=== PATIENT | female | born 1985 ===

== ENCOUNTER 2016-10-16 17:38 | Emergency (ER) | payer OTHER ==
[2016-10-16 17:38] VITALS: BMI 33.8
[2016-10-16 17:45] VITALS: BP 107/71; PULSE 94; TEMP 98.1; O2SAT 98
--- NOTE | 2016-10-16 20:52 | C.PDOC ---
History Of Present Illness Pt left without being seen. Time Seen by Provider: 10/16/16 20:28 Chief Complaint (Nursing): Abdominal Pain Past Medical History Vital Signs: Last Vital Signs Temp 98.1 F 10/16/16 17:42 Pulse 94 H 10/16/16 17:42 Resp 16 10/16/16 19:40 BP 107/71 10/16/16 17:42 Pulse Ox 98 10/20/16 00:21 - Medical History PMH: Anemia, Hyperthyroidism Surgical History: ( x 1) - [facility] Procedures TETANUS TOXOID ADMINIST (05/28/13) Family History: States: Unknown Family Hx - Social History Hx Tobacco Use: No Hx Alcohol Use: No Hx Substance Use: No - Immunization History Hx Tetanus Toxoid Vaccination: No Hx Influenza Vaccination: No Hx Pneumococcal Vaccination: Yes ED Course And Treatment O2 Sat by Pulse Oximetry: 98 Disposition - Disposition Disposition: LEFT W/O BEING SEEN - ER ONLY Disposition Time: 20:00 Condition: GOOD - Clinical Impression Clinical Impression: Abdominal pain
[2016-10-16 22:52] VITALS: RESP 16
== END 2016-10-16 20:28 | disposition left against medical advice (07) ==
LOC: C.ER 17:38
DX: R10.9 Unspecified abdominal pain (principal); Z02.9 Encounter for administrative examinations, unspecified

== ENCOUNTER 2016-10-19 07:09 | Emergency (ER) | payer OTHER ==
[2016-10-19 07:11] VITALS: BMI 33.8
[2016-10-19] MEDS ORDERED: Sodium Chloride 0.9% 1,000 ML IV ONE (07:52)
[2016-10-19] MEDS ORDERED: Sodium Chloride 0.9% 1,000 ML ONE (07:58)
[2016-10-19 08:10] LABS: BASO % 0.4 % (0.0-2.0); EOS # 0.1 K/uL (0.0-0.7); EOS % 1.3 % (0.0-4.0); HEMATOCRIT 37.9 % (34.0-47.0); LYMPH # 1.5 K/uL (1.0-4.3); LYMPH % 15.3 % (20.0-40.0); MEAN CELL VOLUME 87.6 fL (81.0-99.0); MEAN CORPUSCULAR HEMOGLOBIN 29.8 pg (27.0-31.0); MEAN PLATELET VOLUME 9.6 fL (7.2-11.7); MONO # 0.5 K/uL (0.0-0.8); MONO % 4.9 % (0.0-10.0); RED CELL DISTRIBUTION WIDTH 13.7 % (11.5-14.5)
[2016-10-19 08:23] LABS: CHLORIDE 103 mmol/L (98-107); POTASSIUM 3.6 mmol/L (3.6-5.2); SODIUM 135 mmol/L (132-148)
[2016-10-19 08:25] LABS: BILIRUBIN,TOTAL 0.5 mg/dL (0.2-1.3); CARBON DIOXIDE 22 mmol/L (22-30); GFR AFRICAN-AMERICAN > 60; RBC URINE 5 /hpf (0-3); URINE BACTERIA OCC (<OCC); URINE BILIRUBIN NEGATIVE (NEGATIVE); URINE BLOOD NEGATIVE (NEGATIVE); URINE COLOR Yellow (YELLOW); URINE GLUCOSE (UA) NORMAL (Normal); URINE KETONE NEGATIVE (NEGATIVE); URINE LEUKOCYTE ESTERASE NEG Leu/uL (Negative); URINE PROTEIN NEGATIVE (NEGATIVE); URINE UROBILINOGEN NORMAL mg/dL (0.2-1.0); WBC URINE 1 /hpf (0-5)
[2016-10-19 08:26] LABS: ALB/GLOB RATIO 1.1 (1.0-2.1); ALKALINE PHOSPHATASE 48 U/L (38-126); ALT/SGPT 17 U/L (9-52); AST/SGOT 21 U/L (14-36); BLOOD UREA NITROGEN 6 mg/dL (7-17); CALCIUM 8.4 mg/dl (8.6-10.4); GLUCOSE,RANDOM 83 mg/dL (65-105); TOTAL PROTEIN 6.7 g/dL (6.3-8.3)
--- NOTE | 2016-10-19 08:42 | C.PDOC ---
History Of Present Illness 30-year-old female ( at 5-months), presents to the emergency department with complaints of pelvic and low back pain x3 days. Pain intermittent in nature and has been worsening over the weekend. Patient is also complaining of clear vaginal discharge, that is different than prior pregnancies. She admits to nausea. Denies vomiting, diarrhea, dysuria, vaginal bleeding, or any other associated symptoms. No other complaints at this time Time Seen by Provider: 10/19/16 07:29 Chief Complaint (Nursing): Abdominal Pain History Per: Patient History/Exam Limitations: no limitations Onset/Duration Of Symptoms: Days Current Symptoms Are (Timing): Still Present Severity: Moderate Location Of Pain/Discomfort: RLQ, LLQ, Suprapubic Radiation Of Pain To:: Back Past Medical History Reviewed: Historical Data, Nursing Documentation, Vital Signs Vital Signs: Last Vital Signs Temp 98.2 F 10/19/16 10:06 Pulse 78 10/19/16 10:06 Resp 20 10/19/16 10:06 BP 96/57 L 10/19/16 10:06 Pulse Ox 99 10/19/16 10:39 - Medical History PMH: Anemia, Hyperthyroidism Surgical History: ( x 1) - [facility] Procedures TETANUS TOXOID ADMINIST (05/28/13) Family History: States: No Known Family Hx - Social History Hx Tobacco Use: No Hx Alcohol Use: No Hx Substance Use: No - Immunization History Hx Tetanus Toxoid Vaccination: No Hx Influenza Vaccination: No Hx Pneumococcal Vaccination: Yes Review Of Systems Except As Marked, All Systems Reviewed And Found Negative. Constitutional: Negative for: Fever Cardiovascular: Negative for: Chest Pain, Edema Respiratory: Negative for: Shortness of Breath Gastrointestinal: Negative for: Nausea, Vomiting Genitourinary: Positive for: Vaginal Discharge, Pelvic Pain. Negative for: Dysuria, Frequency, Vaginal Bleeding Musculoskeletal: Positive for: Back Pain Neurological: Negative for: Headache Physical Exam - Physical Exam Appears: Non-toxic, No Acute Distress (Uncomfortable) Skin: Warm, Dry, No Rash Neck: Normal ROM Cardiovascular: Rhythm Regular Respiratory: Normal Breath Sounds, No Accessory Muscle Use Gastrointestinal/Abdominal: Soft, Tenderness (RLQ, LLQ, Suprapubic), No Guarding , No Rebound Back: No CVA Tenderness Extremity: Normal ROM Neurological/Psych: Oriented x3 ED Course And Treatment - Laboratory Results Result Diagrams: 10/19/16 08:03 10/19/16 08:03 O2 Sat by Pulse Oximetry: 99 - CT Scan/US TRANSVAGINAL US Other Rad Studies (CT/US): Read By Radiologist, Radiology Report Reviewed CT/US Interpretation: Accession No. : [id number]. Patient Name / ID : PAULA ABAD / [id number]. Exam Date : 10/19/2016 08:41:22 ( Approved ). Study Comment : Sex / Age : F / 30Y. Creator : Klaus Alves MD. Dictator : Klaus Alves MD. Wood Heel Cementer : Quality Nurse : Klaus Alves MD. Approver2 : Report Date : 10/19/2016 09:16:45. My Comment : . PROCEDURE : Obstetrical ultrasound examination. HISTORY: pelvic pain, . COMPARISON: 07/27/2016. TECHNIQUE: * Transabdominal. FINDINGS: Ultrasound examination demonstrates a single live intrauterine gestation in breech presentation. The heart rate is 168 beats per minute. A normal quantity of amniotic fluid is visualized. The cervix is closed and measures 4.2 cm in length. There is no evidence of placenta previa. A normal posterior placenta is identified. Note is made of an anterior intramural uterine fibroid measuring 4.1 x 2.0 x 4.8 cm. biometry yields a gestational age of 19 weeks 0 days. The ANNIE by ultrasound is 03/15/2017. Limited review of anatomy demonstrates no gross abnormality. There is fluid distending the stomach and urinary bladder. 2 normal kidneys are visualized. A three-vessel umbilical cord is identified. A 4 chamber heart is demonstrated. The anterior abdominal wall is intact. IMPRESSION: Single live intrauterine gestation in breech presentation. heart rate 168. No previa. Normal amniotic fluid. No gross anatomic abnormality. Limited anatomic evaluation. Incidental small anterior intramural uterine fibroid. Progress Note: Bloodwork, urine culture/urinalysis and US transvaginal ordered and reviewed. Patient treated with IV Reglan, IVFs and PO Tylenol Disposition Counseled Patient/Family Regarding: Studies Performed, Diagnosis, Need For Followup, Rx Given - Disposition Referrals: [facility] [Outside] Disposition: HOME/ ROUTINE Disposition Time: 10:40 Condition: STABLE Additional Instructions: FOLLOW UP WITH YOUR [employer] DR MITCHELL IN 1-2 DAYS USE MEDICATIONS FOR PAIN NEEDED RETURN TO ER IF SYMPTOMS WORSEN Prescriptions: Acetaminophen [Tylenol 325mg tab] 650 mg PO Q6 PRN #30 tab PRN Reason: pain/fever oxyCODONE/Acetaminophen [Percocet 5/325 mg Tab] 1 tab PO QID PRN #12 tab PRN Reason: Pain Instructions: (ED), Uterine Fibroids (ED), Pelvic Pain in Women (ED) Print Language: PASHTO - POA Present On Arrival: None - Clinical Impression Clinical Impression: Pelvic pain affecting , Fibroid, uterine - Scribe Statement The provider has reviewed the documentation as recorded by the Ning Garcia All medical record entries made by the Ning were at my direction and personally dictated by me. I have reviewed the chart and agree that the record accurately reflects my personal performance of the history, physical exam, medical decision making, and the department course for this patient. I have also personally directed, reviewed, and agree with the discharge instructions and disposition.
--- NOTE | 2016-10-19 09:18 | US ---
PROCEDURE: Obstetrical ultrasound examination HISTORY: pelvic pain, COMPARISON: 07/27/2016 TECHNIQUE: * Transabdominal FINDINGS: Ultrasound examination demonstrates a single live intrauterine gestation in breech presentation. The heart rate is 168 beats per minute. A normal quantity of amniotic fluid is visualized. The cervix is closed and measures 4.2 cm in length. There is no evidence of placenta previa. A normal posterior placenta is identified. Note is made of an anterior intramural uterine fibroid measuring 4.1 x 2.0 x 4.8 cm. biometry yields a gestational age of 19 weeks 0 days. The ANNIE by ultrasound is 03/15/2017. Limited review of anatomy demonstrates no gross abnormality. There is fluid distending the stomach and urinary bladder. 2 normal kidneys are visualized. A three-vessel umbilical cord is identified. A 4 chamber heart is demonstrated. The anterior abdominal wall is intact. IMPRESSION: Single live intrauterine gestation in breech presentation. heart rate 168. No previa. Normal amniotic fluid. No gross anatomic abnormality. Limited anatomic evaluation. Incidental small anterior intramural uterine fibroid.
[2016-10-19 10:07] VITALS: BP 96/57; PULSE 78; RESP 20; TEMP 98.2
[2016-10-19 10:39] VITALS: O2SAT 99
== END 2016-10-19 10:56 | disposition home or self-care (01) ==
LOC: C.ER 07:09
DX: O34.12 Maternal care for benign tumor of corpus uteri, second trimester (principal); D25.1 Intramural leiomyoma of uterus; R10.2 Pelvic and perineal pain; Z3A.19 19 weeks gestation of pregnancy
CPT/HCPCS: 76815; 80053; 81001; 84702; 85025; 87086; 96360; 99285; J2765; J7040

== ENCOUNTER 2017-02-25 08:50 | Emergency (ER) | payer MEDICAID, OTHER ==
--- NOTE | 2017-02-25 10:48 | OBHP ---
Datetime: 02/25/2017 10:45 IP Adm Impression: Term, intrauterine IP Admit Plan: Discharge home Admit Comment, IP Provider: @ 37.6 wks [place] fantasma was referred from clinic for NST. pt state shad bpp at office. pt dnies any lfov, bvb, ct,x +FM. Pt reports she is schelued for her CS @ 39 wks ga [facility] OB: FT CxS uncompliated SUSHI CHEF: denies hx of anbora pap, fibro, ovairy cyst PMY: denies PSH: CxS x 2 EMDS :pNVS SHX: negaeive etoh/tobacc/drugs A/P G3P@ @ 37.6 wks with matneral and reassuring -s/p NST recatice -no evidce of labor or distress -d/c jaylon -RTO clinci within 1 weke as schelueled -labor preucaitns FHR - Baseline A Provider: 125 Membranes, Provider: Intact Comments, ACOG Physical Exam: abd; soft, nt, nd, no guaridng, no reoubdj tendernes no rigdy no palable ctx no sicsion tendenedre. Gestation - Est Wks by US: 37.6 EGA AdmitDate IP: 37.6 Vital Signs Provider: Reviewed; Within Normal Limits IP Chief Complaint: Other NICHD Variability Prov Fetus A: Moderate 6-25bpm NICHD Accel Fetus A IP Provider: [id number] FHR Category Provider Fetus A: Category I Dilatation, Provider: 0 Effacement, Provider: 30 Station, Provider: -3
[2017-02-25 16:45] VITALS: BP 121/69; PULSE 84; TEMP 98
== END 2017-02-25 09:45 | disposition home or self-care (01) ==
LOC: C.EROB 08:50
DX: Z36.89 Encounter for other specified antenatal screening (principal)